=== PATIENT | male | born 1960 | race Caucasian/White ===

== ENCOUNTER 2019-11-07 12:40 | Outpatient (CLI) | payer OTHER, SELFPAY ==
--- NOTE | ~2019-11-07 | XR_ITS ---
EXAMINATION: XR fl inj shoulder LT - MR/CT DATE: 11/07/2019 14:07 INDICATION: Left rotator cuff syndrome. Labral tear. TECHNIQUE: A time-out was performed to verify the patient's name, date of , and procedure to b e performed. The procedure including the risks, benefits, and alternatives was discussed with the pat ient. Risks discussed included bleeding and infection. The patient understood the risks and agreed to proceed. The skin overlying the rotator cuff interval of the left glenohumeral joint was prepped an d draped in usual sterile fashion. Anesthetic was administered with 1% lidocaine subcutaneously. A 22 G needle was advanced under fluoroscopic guidance into the joint. Injection of 0.6 mL of Omnipaqu e 240 confirmed intra-articular position of the needle. Subsequently, injectate consisting of 12 mL of 2:1:1 mixture of sterile saline:Omnipaque 240:1% lidocaine mixed 200:1 with 529 mg/mL Multihance g adolinium contrast was injected with intermittent fluoroscopy confirming intra-articular administrati on. The needle was removed and the entry site was cleaned and dressed. Following the injection the tara tient expressed a vasovagal episode characterized by transient nausea and a presyncopal episode. I we nt to see the patient was already in Trendelenburg position and conscious, mentating clearly in no ap parent distress. Patient was subsequently transferred to the MR scanner. Fluoroscopy exposure time wa s 0.1 minutes. The total number of images was 61. FINDINGS: Real-time fluoroscopy demonstrates the needle and contrast in the left glenohumeral joint. IMPRESSION: 1. Left glenohumeral joint injection of a dilute gadolinium contrast mixture for subsequent MRI arthr ogram which will be dictated separately. Reviewed, dictated and finalized at location A. IMPRESSION: 1. Left glenohumeral joint injection of a dilute gadolinium contrast mixture fo r subsequent MRI arthrogram which will be dictated separately.
--- NOTE | ~2019-11-07 | MR_ITS ---
EXAMINATION: MR shoulder LT w con DATE: 11/07/2019 15:04 INDICATION: Left rotator cuff cuff syndrome. Labral tear. TECHNIQUE: Magnetic resonance imaging (MRI) of the left shoulder was performed following intra-artic ular gadolinium contrast injection and without intravenous contrast. Details of the glenohumeral join t injection have been dictated separately. Sequences included axial T2-weighted FS FSE, axial T1-edmund ghted FS FSE, coronal oblique T1-weighted FS FSE, coronal oblique T2-weighted FSE, sagittal T2-weight ed FS FSE, sagittal T1-weighted FSE, and ABER (abduction external rotation) T1-weighted FS FSE. COMPARISON: None. FINDINGS: Coracoacromial arch: The acromion undersurface is curved in morphology (type II). The coracoacromial ligament is normal. M ild acromioclavicular osteoarthritis. Rotator cuff: Mild supraspinatus tendinopathy with shallow fraying along the bursal surface. Although no measurable tear defect is appreciated there is full-thickness perforation with intrasubstance contrast imbibiti on and small amount of extra-articular contrast extending into the immediately overlying subdeltoid b ursa. The infraspinatus, teres minor and subscapularis tendons are normal. Normal rotator cuff muscle bulk and signal. Biceps tendon, glenoid labrum and glenohumeral cartilage: Long head of the biceps tendon is normal. There is a shallow tear with delamination at the chondral l abral junction of the 11:30-9:00 position of the glenoid labrum. There is an additional deeper linear tear at the base of the 3:00-5:00 position of the anteroinferior glenoid labrum. Mild chondral swell ing and shallow fissuring at the adjacent anteroinferior glenoid. Remainder of the glenohumeral carti ruthann appears normal. Bones and other: Normal marrow signal with no edema, fracture or pathologic marrow replacing process. IMPRESSION: 1. 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 2. Mild tendinopathy with bursal sided fraying and full-thickness perforation at the distal supraspin atus tendon characterized by intrasubstance contrast imbibition and small amount of contrast extendin g into the subdeltoid bursa but without a measurable fluid signal intensity tear defect. The small am ount of contrast imbibition and extravasation appear to have occurred over time with no corresponding contrast seen at this location on fluoroscopic images obtained of the shoulder during internal and e xternal rotation obtained immediately after the joint injection. Reviewed, dictated and finalized at location A. IMPRESSION: 1. 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 2. Mild tendinopathy with bursal sided fraying and full-thickness perforation a t the distal supraspinatus tendon characterized by intrasubstance contrast imbi bition and small amount of contrast extending into the subdeltoid bursa but wit hout a measurable fluid signal intensity tear defect. The small amount of contr ast imbibition and extravasation appear to have occurred over time with no óscar esponding contrast seen at this location on fluoroscopic images obtained of the shoulder during internal and external rotation obtained immediately after the joint injection.
== END 2019-11-07 12:41 | disposition home or self-care (01) ==
PROVIDERS: PCP Internal Medicine Infectious Disease
DX: M75.102 Unspecified rotator cuff tear or rupture of left shoulder, not specified as traumatic (principal); S43.432A Superior glenoid labrum lesion of left shoulder, initial encounter; X58.XXXA Exposure to other specified factors, initial encounter; M94.212 Chondromalacia, left shoulder; M19.012 Primary osteoarthritis, left shoulder
CPT/HCPCS: 23350; 73222; 77002; A9577; Q9966

== ENCOUNTER 2023-03-19 12:59 | Emergency (ER) | payer OTHER, SELFPAY ==
[2023-03-19 13:11] VITALS: BP 151/101; PULSE 104; RESP 16; TEMP 37.4; O2SAT 98
--- NOTE | 2023-03-19 14:32 | ED.GENADULT ---
HPI - General Adult General Chief complaint: Abdominal Pain Stated complaint: stomach issues Time Seen by Provider: 03/19/23 14:17 Source: patient and RN notes reviewed Mode of arrival: ambulatory Limitations: no limitations History of Present Illness HPI narrative: Patient presents today with a 3 day history abdominal cramping, bloating, gas, with a 2 day history of diarrhea, decreased appetite and mild nausea. He also reports some achiness in the left lower quadrant. He reports some sweats and low-grade fever up to 100 for the past 3 days as well. He does report some blood in his stool, but has an active hemorrhoid. States there was a small amount of mucus in his stool as well. He currently rates his abdominal discomfort 3-10/23. Patient has been using some peppermint medication for irritable bowel syndrome with some relief. He has never been diagnosed with any gastrointestinal issues formally, but states he does have bouts of abdominal cramping and diarrhea throughout the years. States his symptoms have been slowly improving since onset, but states that since they have been present for a few days now he wanted to come in for evaluation. Related Data Allergies Allergy/AdvReac Type Severity Reaction Status Date / Time Penicillins Allergy Mild Unknown Unverified 03/19/23 14:40 Review of Systems Review of Systems: CONSTITUTIONAL: Denies body aches, fever, chills, or sweats. EYES: Denies visual changes, redness, or discharge. ENT: Denies rhinorrhea, congestion, sore throat, or otalgia. CARDIOVASCULAR: Denies chest pain, palpitations, or edema. RESPIRATORY: Denies cough or dyspnea. GASTROINTESTINAL: Denies vomiting. + nausea, decreased appetite, abdominal cramping and bloating, abdominal discomfort GENITOURINARY: Denies dysuria or hematuria. SKIN: Denies rash, itching, or wounds. MUSCULOSKELETAL: Denies back pain, joint pain, or myalgia. NEUROLOGIC: Denies headache, numbness, tingling, or weakness. PSYCH: Denies depression or anxiety. PMFSH Comments At time of signature, I have reviewed and agree with nursing past medical, surgical, social and family history unless otherwise noted. Please see nursing chart for further information. There is no relevant family history pertinent to the presenting complaint Exam Narrative: GENERAL: Well-appearing, well-nourished, and in no acute distress. HEAD: Normocephalic, atraumatic. EYES: EOMI. No redness or drainage. Conjunctivae normal. ENT: Mucous membranes pink and moist. NECK: Normal AROM. CHEST: No respiratory distress. Clear to auscultation. HEART: Regular rate and rhythm. No murmur appreciated. Normal peripheral pulses. ABDOMEN: Soft, nontender, nondistended, normal active bowel sounds. EXTREMITIES: Normal range of motion. No edema. SKIN: Warm, dry, no rash. Capillary refill normal. Normal skin turgor. NEURO: No focal deficits. Alert and oriented x3. Gait steady. PSYCH: Normal affect. No signs of depression or anxiety. Course Course Level of Care: Express Care Visit Vital Signs Vital signs: Vital Signs Temperature 99.3 F 03/19/23 13:11 Pulse Rate 104 H 03/19/23 13:11 Respiratory Rate 16 03/19/23 13:11 Blood Pressure 151/101 H 03/19/23 13:11 Pulse Oximetry 98 03/19/23 13:11 Oxygen Delivery Room Air 03/19/23 13:11 Temperature 99.3 F 03/19/23 13:11 Pulse Rate 104 H 03/19/23 13:11 Respiratory Rate 16 03/19/23 13:11 Blood Pressure 151/101 H 03/19/23 13:11 Pulse Oximetry 98 03/19/23 13:11 Oxygen Delivery Room Air 03/19/23 13:11 Reviewed. Pt has been instructed to follow up with his PCP regarding his elevated blood pressure today. Medical Decision Making MDM Narrative Medical decision making narrative: Will treat patient with hyoscyamine for his abdominal cramping. Offered antiemetic, but patient declined. He also declined transfer to the ER for further evaluation. He does have contact with director career services wh
== END 2023-03-19 15:00 | disposition home or self-care (01) ==
PROVIDERS: Emergency Provider Nurse Practitioner; PCP Internal Medicine Infectious Disease
DX: R10.9 Unspecified abdominal pain (principal); R19.7 Diarrhea, unspecified; I10 Essential (primary) hypertension
CPT/HCPCS: 99213; G0463